=== PATIENT | female | born 2000 | race Hispanic/Latino ===

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

== ENCOUNTER 2022-10-13 15:51 | Emergency (ER) | payer OTHER ==
[2022-10-13 16:57] LABS: Specific Gravity 1.028 (1.005-1.030)
[2022-10-13 17:03] LABS: Specific Gravity 1.028 (1.005-1.030); Urine Bacteria None Seen /HPF (<20); Urine Bilirubin NEGATIVE (Negative); Urine Blood Trace (Negative); Urine Clarity Clear (Clear); Urine Color Yellow (Yellow); Urine Glucose NEGATIVE (Negative); Urine Mucus Slight /HPF (None Seen); Urine Protein TRACE (Negative); Urine RBC <5 /HPF (None Seen); Urine Urobilinogen Normal (Normal)
[2022-10-13 17:33] LABS: SARS-CoV-2 Antigen Rapid Res Negative (Negative)
--- NOTE | 2022-10-13 17:50 | EDPHYS ---
Physician Documentation [facility] Name: Ninfa Barber Age: 21 yrs Sex: Female : 2000 Arrival Date: 10/13/2022 Time: 15:51 Bed IW4 Private MD: ED Physician Arjun Bangura HPI: 10/13 16:48 This 21 yrs old Female presents to ER via Ambulatory with complaints of snw Nausea/Vomiting/Diarrhea, Weakness. 16:48 The patient presents to the emergency department with nausea, vomiting. Onset: The snw symptoms/episode began/occurred acutely. Possible causes: unknown. The symptoms are aggravated by nothing. The symptoms are alleviated by nothing. Associated signs and symptoms: Pertinent positives: nausea, vomiting, fatigue/malaise. Severity of symptoms: At their worst the symptoms were moderate. It is unknown whether or not the patient has had similar symptoms in the past. some family members with similar s/s. 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 - Social history:: Smoking status: Reported history of juuling and/or vaping. ROS: 16:47 Eyes: Negative for injury, pain, redness, and discharge, ENT: Negative for injury, snw pain, and discharge, Neck: Negative for injury, pain, and swelling, Cardiovascular: Negative for chest pain, palpitations, and edema, Respiratory: Negative for shortness of breath, cough, wheezing, and pleuritic chest pain. 16:47 MS/Extremity: Negative for injury and deformity, Skin: Negative for injury, rash, and discoloration, Neuro: Negative for headache, weakness, numbness, tingling, and seizure, Psych: Negative for depression, anxiety, suicide ideation, homicidal ideation, and hallucinations. 16:47 Constitutional: Positive for body aches, fatigue, malaise. 16:47 Abdomen/GI: Positive for nausea and vomiting, abdominal cramps. 16:47 : Positive for LMP ending, pt took test 2 days ago with negative result. . Exam: 16:47 Constitutional: This is a well developed, well nourished patient who is awake, alert, snw and in no acute distress. Head/Face: Normocephalic, atraumatic. Eyes: Pupils equal round and reactive to light, extra-ocular motions intact. Lids and lashes normal. Conjunctiva and sclera are non-icteric and not injected. Cornea within normal limits. Periorbital areas with no swelling, redness, or edema. ENT: Nares patent. No nasal discharge, no septal abnormalities noted. Tympanic membranes are normal and external auditory canals are clear. Oropharynx with no redness, swelling, or masses, exudates, or evidence of obstruction, uvula midline. Mucous membranes moist. Neck: Trachea midline, no thyromegaly or masses palpated, and no cervical lymphadenopathy. Supple, full range of motion without nuchal rigidity, or vertebral point tenderness. No Meningismus. Chest/axilla: Normal chest wall appearance and motion. Nontender with no deformity. No lesions are appreciated. Cardiovascular: Regular rate and rhythm with a normal S1 and S2. No gallops, murmurs, or rubs. Normal PMI, no JVD. No pulse deficits. Respiratory: Lungs have equal breath sounds bilaterally, clear to auscultation and percussion. No rales, rhonchi or wheezes noted. No increased work of breathing, no retractions or nasal flaring. Abdomen/GI: Soft, non-tender, with normal bowel sounds. No distension or tympany. No guarding or rebound. No evidence of tenderness throughout. Back: No spinal tenderness. No costovertebral tenderness. Full range of motion. Skin: Warm, dry with normal turgor. Normal color with no rashes, no lesions, and no evidence of cellulitis. MS/ Extremity: Pulses equal, no cyanosis. Neurovascular intact. Full, normal range of motion. Neuro: Awake and alert, GCS 15, oriented to person, place, time, and situation. Cranial nerves II-XII grossly intact. Motor strength 5/5 in all extremities. Sensory grossly intact. Cerebellar exam normal. Normal gait. Psych: Awake, alert, with orientation to person, place and time. Behavior, mood, and affect are within normal limits. Vital Signs: 15:58 BP 137 / 84; Pulse 84; Resp 18; Temp 98.4; Pulse Ox 95% on R/A; Weight 77.11 kg; Height mb9 5 ft. 7 in. ; 18:08 BP 128 / 74; Pulse 78; Resp 16; Pulse Ox 100% on R/A; mb9 15:58 Body Mass Index 26.63 (77.11 kg, 170.18 cm) mb9 MDM: 16:37 Patient medically screened. snw 16:49 Differential diagnosis: Nonspecific abd pain, viral gastroenteritis, viral infection, snw . Data reviewed: vital signs, nurses notes. 10/13 16:06 Order name: Flu; Complete Time: 17:48 snw 10/13 16:06 Order name: SARS RAPID; Complete Time: 17:48 snw 10/13 16:40 Order name: Urine W/Microscopic (UAM); Complete Time: 17:04 snw 10/13 16:40 Order name: PREGU; Complete Time: 17:11 snw Administered Medications: 17:55 Drug: Promethazine PO 25 mg Route: PO; mb9 18:07 Follow up: Response: No adverse reaction mb9 Disposition Summary: 10/13/22 17:49 Discharge Ordered Location: Home snw Condition: Stable snw Diagnosis - Nausea with vomiting, unspecified snw - Other malaise and fatigue snw Followup: snw - With: Emergency Department - When: As needed - Reason: Worsening of condition Followup: snw - With: Private Physician - When: 2 - 3 days - Reason: Recheck today's complaints, Continuance of care, Re-evaluation by your physician Discharge Instructions: - Discharge Summary Sheet snw - Nausea and Vomiting, Adult snw - Fatigue snw - Rehydration, Adult snw - Schuyler Diet snw Forms: - Work release form snw - Medication Reconciliation Form snw - Thank You Letter snw - Antibiotic Education snw - Prescription Opioid Use snw - Patient Portal Instructions snw - Leadership Thank You Letter snw Prescriptions: - Zofran 4 mg Oral Tablet - take 1 tablet by ORAL route every 12 hours As needed; 20 tablet; Refills: 0, snw Product Selection Permitted Signatures: Dispatcher [employer] Joanne Jeffers FNP-C MANAGER BACKGROUND-Csnw Cuca Chan RN RN mb9
--- NOTE | 2022-10-13 17:50 | ER ---
Nurse's Notes [facility] Name: Ninfa Barber Age: 21 yrs Sex: Female : 2000 Arrival Date: 10/13/2022 Time: 15:51 Bed IW4 Private MD: Diagnosis: Nausea with vomiting, unspecified;Other malaise and fatigue Presentation: 10/13 15:58 Chief complaint: Patient states: "I've been N/V for the past 5 days. My throat feels mb9 slimy, lack of appetite, and body aches". Coronavirus screen: Vaccine status: Patient reports being unvaccinated. Ebola Screen: No symptoms or risks identified at this time. Initial Sepsis Screen: Does the patient meet any 2 criteria? No. Patient's initial sepsis screen is negative. Does the patient have a suspected source of infection? No. Patient's initial sepsis screen is negative. Risk Assessment: Do you want to hurt yourself or someone else? Patient reports no desire to harm self or others. Onset of symptoms was October 13, 2022. 15:58 Method Of Arrival: Ambulatory 9 15:58 Acuity: LATONIA 4 mb9 Triage Assessment: 16:00 General: Appears in no apparent distress. Behavior is calm, cooperative. Pain: mb9 Complains of pain in entire body Quality of pain is described as aching. Neuro: Level of Consciousness is awake, alert, obeys commands, Oriented to person, place, time, situation, Appropriate for age. Cardiovascular: Patient's skin is warm and dry. Respiratory: Reports cough that is Airway is patent Respiratory effort is even, unlabored, Respiratory pattern is regular, symmetrical. GI: Reports diarrhea, nausea, vomiting. Derm: Skin is pink, warm \\T\\ dry. Musculoskeletal: Range of motion: intact in all extremities. 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 - Social history:: Smoking status: Reported history of juuling and/or vaping. Screenin:07 [facility] [place] ED Fall Risk Assessment (Adult) History of falling in the last 3 months, mb9 including since admission No falls in past 3 months (0 pts) Confusion or Disorientation No (0 pts) Intoxicated or Sedated No (0 pts) Impaired Gait No (0 pts) Mobility Assist Device Used No (0 pt) Altered Elimination No (0 pt) Score/Fall Risk Level 0 - 2 = Low Risk Oriented to surroundings, Maintained a safe environment, Educated pt \\T\\ family on fall prevention, incl call for assistance when getting out of bed. Abuse screen: Denies threats or abuse. Nutritional screening: No deficits noted. Tuberculosis screening: No symptoms or risk factors identified. Assessment: 18:07 Reassessment: No changes from previously documented assessment. Patient and/or family mb9 updated on plan of care and expected duration. Pain level reassessed. Patient is alert, oriented x 3, equal unlabored respirations, skin warm/dry/pink. Vital Signs: 15:58 BP 137 / 84; Pulse 84; Resp 18; Temp 98.4; Pulse Ox 95% on R/A; Weight 77.11 kg; Height mb9 5 ft. 7 in. ; 18:08 BP 128 / 74; Pulse 78; Resp 16; Pulse Ox 100% on R/A; mb9 15:58 Body Mass Index 26.63 (77.11 kg, 170.18 cm) mb9 ED Course: 15:53 Patient arrived in ED. im 15:58 Arm band placed on. mb9 15:59 Triage completed. mb9 16:05 [facility] Terry [facility]C [facility] snw 16:05 Arjun Bangura MD is Attending Physician. snw 16:38 SARS RAPID Sent. mb9 16:38 Flu Sent. mb9 16:46 PREGU Sent. mb9 16:46 Urine W/Microscopic (UAM) Sent. mb9 18:07 Cuca Chan RN is Primary Nurse. mb9 18:07 Bed in low position. mb9 18:08 No provider procedures requiring assistance completed. Patient did not have IV access mb9 during this emergency room visit. Administered Medications: 17:55 Drug: Promethazine PO 25 mg Route: PO; mb9 18:07 Follow up: Response: No adverse reaction mb9 Medication: 18:08 VIS not applicable for this client. mb9 Outcome: 17:49 Discharge ordered by MD. sheldon 18:08 Discharged to home ambulatory. mb9 18:08 Condition: stable 18:08 Discharge instructions given to patient, family, Instructed on discharge instructions, follow up and referral plans. Demonstrated understanding of instructions, follow-up care, medications, Prescriptions given X 1. 18:08 Patient left the ED. mb9 Signatures: Joanne Trery, CHANGE CONTROL COORDINATOR-C CHANGE CONTROL COORDINATOR-Csnw Cuca Chan RN RN mb9 Amber Mead
[2022-10-13] MEDS ORDERED: PROMETHAZINE 25 MG TABLET ONE (18:15)
[2022-10-13 19:14] VITALS: TEMP 98.4
[2022-10-13 19:15] VITALS: BP 128/74; O2SAT 100
== END 2022-10-13 18:08 | disposition home or self-care (01) ==
LOC: ER 15:51
DX: R11.2 Nausea with vomiting, unspecified (principal); R53.81 Other malaise; R53.83 Other fatigue; Z20.822 Contact with and (suspected) exposure to COVID-19
CPT/HCPCS: 81001; 36415; 81025; 87804 ×2; 99283; 87811; Q0169